=== PATIENT | female | born 1990 | race Caucasian/White ===

== ENCOUNTER → 2018-08-31 | Outpatient (REF) | payer OTHER ==
[2018-08-31 14:26] LABS: HEMATOCRIT 38.4 % (36.0-47.0); HEMOGLOBIN 12.9 g/dl (12.0-15.5); MEAN CORPUSCULAR HEMOGLOBIN 29.6 pg (27.0-33.0); MEAN CORPUSCULAR HGB CONC 33.6 g/dl (32.0-36.5); MEAN CORPUSCULAR VOLUME 88.1 fl (80.0-96.0); PLATELET COUNT, AUTOMATED 207 10^3/uL (150-450); RED BLOOD COUNT 4.36 10^6/uL (4.00-5.40); WHITE BLOOD COUNT 7.8 10^3/uL (4.0-10.0)
[2018-09-01 12:37] LABS: HIV 1&2 SCREEN CENTAUR NEGATIVE (NEGATIVE); RUBELLA IgG QUALITATIVE IMMUNE (IMMUNE)
== END ==
LOC: M LAB REF 13:43
PROVIDERS: ATTEND Obstetrics & Gynecology
DX: Z34.01 Encounter for supervision of normal first pregnancy, first trimester (principal)

== ENCOUNTER → 2018-09-14 | Outpatient (CLI) | payer OTHER ==
[2018-09-14 18:37] LABS: BASO % 0.4 % (0.0-1.0); EOS # 0.2 10^3/uL (0.0-0.50); EOS % 3.4 % (0.0-3.0); HEMOGLOBIN 12.8 g/dl (12.0-15.5); LYMPH # 1.4 10^3/uL (1.5-6.5); LYMPH % 19.5 % (24.0-44.0); MEAN CORPUSCULAR HEMOGLOBIN 29.8 pg (27.0-33.0); MEAN CORPUSCULAR HGB CONC 33.7 g/dl (32.0-36.5); MEAN CORPUSCULAR VOLUME 88.6 fl (80.0-96.0); MONO # 0.4 10^3/uL (0.0-0.8); MONO % 5.3 % (0.0-5.0); NEUTROPHILS # 4.9 10^3/uL (1.8-7.7); NEUTROPHILS % 71.1 % (36.0-66.0); PLATELET COUNT, AUTOMATED 189 10^3/uL (150-450); RED BLOOD COUNT 4.29 10^6/uL (4.00-5.40)
[2018-09-14 20:38] LABS: CHLAMYDIA DNA AMPLIFICATION NEGATIVE (NEGATIVE); GC DNA AMPLIFICATION NEGATIVE (NEGATIVE)
[2018-09-15 10:10] LABS: HEPATITIS C VIRUS ABY INDEX < 0.0 INDEX (<0.8); HIV 1&2 SCREEN CENTAUR NEGATIVE (NEGATIVE); RUBELLA IgG QUALITATIVE IMMUNE (IMMUNE)
== END ==
LOC: M SMT 14:49
PROVIDERS: ATTEND Advanced Practice Midwife
DX: Z36.89 Encounter for other specified antenatal screening (principal)

== ENCOUNTER → 2018-11-24 | Outpatient (REF) | payer OTHER ==
[2018-11-24 21:06] LABS: CHLAMYDIA DNA AMPLIFICATION NEGATIVE (NEGATIVE); GC DNA AMPLIFICATION NEGATIVE (NEGATIVE)
== END ==
LOC: M LAB REF 17:13
PROVIDERS: ATTEND Obstetrics & Gynecology
DX: Z11.3 Encounter for screening for infections with a predominantly sexual mode of transmission (principal)

== ENCOUNTER → 2019-01-23 | Outpatient (CLI) | payer OTHER ==
[2019-01-23 18:45] LABS: HEMATOCRIT 34.3 % (36.0-47.0); HEMOGLOBIN 11.1 g/dl (12.0-15.5); MEAN CORPUSCULAR HEMOGLOBIN 30.1 pg (27.0-33.0); MEAN CORPUSCULAR HGB CONC 32.4 g/dl (32.0-36.5); PLATELET COUNT, AUTOMATED 185 10^3/uL (150-450); RED BLOOD COUNT 3.69 10^6/uL (4.00-5.40); WHITE BLOOD COUNT 9.9 10^3/uL (4.0-10.0)
== END ==
LOC: M SMT 14:15
PROVIDERS: ATTEND Advanced Practice Midwife
DX: O47.02 False labor before 37 completed weeks of gestation, second trimester (principal); Z3A.00 Weeks of gestation of pregnancy not specified

== ENCOUNTER → 2019-02-09 | Outpatient (CLI) | payer MEDICAID ==
--- NOTE | 2019-02-09 12:16 | REP ---
OB ULTRASOUND, BIOPHYSICAL PROFILE: Real-time sonographic evaluation of gravid uterus performed utilizing transabdominal and endovaginal technique. There is a single living intrauterine gestation. The estimated gestational age is 32 weeks 2 days based on LMP, EDC 04/04/2019. Today's measurements indicate appropriate growth. BPD 82 mm = 32 weeks 6 days, 58th percentile HC 297 mm = 32 weeks 6 days, 58th percentile AC 286 mm = 32 weeks 4 days, 54th percentile Femur length 62 mm = 32 weeks 0 days, 45th percentile HC/AC ratio 1.04, within normal range. Estimated weight 1976 grams, 46th percentile. heart rate 133 beats per minute. Amniotic fluid within normal limits, BOBBI 10.6 within normal range of 8.5 to 24.3. Biophysical profile score 8/8. S/D ratio 2.97, below normal range of 3.21 to 4.49. RI 0.66, within normal range of 0.63 to 0.79. SEEN/GROSSLY UNREMARKABLE Lateral ventricles Yes Posterior fossa No Upper lip Yes Four-chamber heart Yes LVOT Yes RVOT Yes Stomach Yes Cord insertion No Three vessel cord No Kidneys Yes Bladder Yes Spine Yes position: Vertex. Placenta: Posterior and grade 2 with no previa or abruption. Cervix is closed and measures 3.6 cm in length. Electronically Signed by Bin Cartwright MD 02/13/2019 05:29 P
== END ==
LOC: M RAD 10:37
PROVIDERS: ATTEND Advanced Practice Midwife
DX: O26.853 Spotting complicating pregnancy, third trimester (principal); Z3A.32 32 weeks gestation of pregnancy

== ENCOUNTER → 2019-02-09 | Outpatient (REF) | payer MEDICAID | LOC: M LAB REF 13:32 | PROVIDERS: ATTEND Advanced Practice Midwife | DX: Z34.82 Encounter for supervision of other normal pregnancy, second trimester (principal) ==

== ENCOUNTER → 2019-02-15 | Outpatient (CLI) | payer MEDICAID, OTHER | LOC: M LAB 06:56 | PROVIDERS: ATTEND Advanced Practice Midwife | DX: Z34.82 Encounter for supervision of other normal pregnancy, second trimester (principal); Z36.89 Encounter for other specified antenatal screening ==

== ENCOUNTER 2019-03-11 20:56 | Outpatient (CLI) | payer MEDICAID ==
[~2019-03-11] VITALS: Ht 165.1 cm; Wt 85.0 kg
[2019-03-11 21:15] VITALS: BP 114/62
[2019-03-11] MEDS ORDERED: PRENTAB9 PO (21:32)
[2019-03-11] MEDS ORDERED: EXCETAB44 PO (21:32)
== END 2019-03-11 22:16 | disposition home or self-care (01) ==
LOC: M LDO 20:56
PROVIDERS: ATTEND Obstetrics & Gynecology
DX: O47.03 False labor before 37 completed weeks of gestation, third trimester (principal); Z3A.36 36 weeks gestation of pregnancy

== ENCOUNTER 2019-03-14 04:51 | Inpatient (IN) | payer MEDICAID ==
[2019-03-14] VITALS (7 sets, daily range): BP systolic 86–131; BP diastolic 52–72
[~2019-03-14] VITALS: Ht 165.1 cm; Wt 84.4 kg
[~2019-03-14 04:51] MED LIST: EXCETAB44 PO; PRENTAB9 PO
[2019-03-14] MEDS ORDERED: LR 1,000 ML IV SCH (05:42)
[2019-03-14] MEDS ORDERED: LACTATED RINGER'S 1000 ML IV STA (05:42)
[2019-03-14] MEDS ORDERED: OXYTOCIN 30 UNITS IN 0.9% NaCl 500ML IV BAG (J2590) As Ordered ONE (06:02)
[2019-03-14 06:14] LABS: HEMATOCRIT 34.1 % (36.0-47.0); MEAN CORPUSCULAR HEMOGLOBIN 27.9 pg (27.0-33.0); MEAN CORPUSCULAR HGB CONC 32.3 g/dl (32.0-36.5); MEAN CORPUSCULAR VOLUME 86.5 fl (80.0-96.0); PLATELET COUNT, AUTOMATED 163 10^3/uL (150-450); RED BLOOD COUNT 3.94 10^6/uL (4.00-5.40); WHITE BLOOD COUNT 12.5 10^3/uL (4.0-10.0)
[2019-03-14] MEDS ORDERED: OXYTOCIN DRIP 30 UNITS in IV 1 EA IV SCH (07:08)
[2019-03-14] MEDS ORDERED: RHOGAM 300 MCG (1500 IU) INJ (J2790) IM SCH (07:15)
[2019-03-14] MEDS ORDERED: ACETAMINOPHEN 500 MG TAB PO PRN (07:15)
[2019-03-14] MEDS ORDERED: METHYLERGONOVINE MALEATE 0.2 MG TAB PO PRN (07:15)
[2019-03-14] MEDS ORDERED: MEASLES,MUMPS,RUBELLA VACCINE INJ (MMR-II) (90707) SC SCH (07:15)
[2019-03-14] MEDS ORDERED: ANUSOL HC CREAM 30GM TOP PRN (07:15)
[2019-03-14] MEDS ORDERED: DIBUCAINE 1% OINTMENT 30GM TOP PRN (07:15)
[2019-03-14] MEDS ORDERED: ONDANSETRON 4MG/2ML VIAL (J2405) IV PRN (07:15)
[2019-03-14] MEDS ORDERED: MOM 30ML SUSPENSION UDC PO PRN (07:15)
[2019-03-14] MEDS ORDERED: ACETAMINOPHEN TAB 650MG DOSE (2X325MG) PO PRN (07:15)
--- NOTE | 2019-03-14 07:24 | HPE ---
DATE OF ADMISSION: 03/14/2019 REASON FOR ADMISSION: Labor. HISTORY OF PRESENT ILLNESS: Mrs. Sagastume is a 29-year-old, 4, para 2, who presents at 37 weeks 2 days estimated gestational age by last menstrual period, confirmed by mid trimester ultrasound with complaints of contractions. She reports contractions throughout the night that have increased in intensity and frequency. She denies any vaginal bleeding or leakage of fluid. She reports active movements. Her course has been unremarkable. She initiated care in the first trimester and has been appropriate throughout. PAST MEDICAL HISTORY: Asthma. PAST SURGICAL HISTORY: section. that she has a past medical history asthma. OBSTETRICAL HISTORY: She has had one that was for arrest of dilation and bradycardia. She had a vaginal after section, proven to 7 pounds 11 ounces. MEDICATIONS: vitamins. ALLERGIES: She has no known drug allergies. SOCIAL HISTORY: Denies any alcohol, tobacco or drug use during . PHYSICAL EXAMINATION: Vital signs are stable. She is afebrile. She has a category one rate tracing. General Appearance: Well appearing, in no acute distress. Abdomen is gravid, nontender. Cervical Exam: She was 6 cm dilated, completely effaced, 0 station, and was grossly ruptured. LABS: Her blood type is A+. Antibody screen is negative. Rubella is immune. RPR is nonreactive. Hepatitis surface antigen negative. HIV is negative. Hepatitis C is nonreactive. Chlamydia and gonorrhea screens negative. She had an elevated 1-hour Glucola with a negative 3-hour glucose tolerance test. Her GBS status is unknown. ASSESSMENT: 1. This patient is a 29-year-old, 4, para 2, at 37 weeks and 4 days estimated gestational age with spontaneous rupture of membranes. 2. History of prior section. PLAN: 1. Admit to labor and delivery. CBC, RPR, type and screen. Antibiotics for GBS positive status. 2. The patient has been counseled throughout her regarding mode of delivery. She has expressed desire for trial of labor after section. She has been counseled on the risks of her management options. 3. Anticipate spontaneous vaginal delivery.
--- NOTE | 2019-03-14 07:25 | DN ---
DATE OF PROCEDURE: 03/14/2019 TIME OF : 620 GENDER: Male : 9 and 9 WEIGHT: 3182 grams ANESTHESIA: None. LACERATIONS: First degree midline laceration. COUNTS: Five laparotomy sponges accounted for prior to after delivery two sharps removed from delivery field. DELIVERY NOTE: On March 14, 2019 at 0621, Mrs. Sagastume a 29-year-old 4, para 3 had a vaginal after section of live born male , 9 and 9, weight was 3182 grams head was delivered OA followed by delivery shoulders and corpus. Cord was clamped times two and was cut by the father of baby under my direction. Placenta was then drained delivered grossly intact. A premixed bag of 500 mL of normal saline with 30 units of Pitocin was bolused along with uterine massage. The uterus was firm and inspection was first-degree midline laceration which was repaired with 3-0 Vicryl Rapide on reinspection cervix, vagina and perineum was grossly intact hemostatic. Mom and baby recovering in stable condition. The couple has decided to name their son
[2019-03-14] MEDS: DOCUSATE SODIUM 100 MG CAP PO SCH ×2 (08:13→21:27)
[2019-03-14] MEDS: PRENATAL VITAMINS CHEWABLE TABLET PO SCH (08:13)
[2019-03-14] MEDS ORDERED: LIDOCAINE 1% MDV 20ML VIAL INFIL ONE (08:15)
[2019-03-14] MEDS: IBUPROFEN 800 MG TAB PO PRN ×2 (09:16→16:20)
[2019-03-14] MEDS: IBUPROFEN 600 MG TAB PO PRN (19:46)
[2019-03-15 06:24] VITALS: BP 91/51
[2019-03-15] MEDS: PRENATAL VITAMINS CHEWABLE TABLET PO SCH (07:11)
[2019-03-15] MEDS: DOCUSATE SODIUM 100 MG CAP PO SCH (07:11)
[2019-03-15] MEDS: IBUPROFEN 600 MG TAB PO PRN (08:02)
== END 2019-03-15 16:23 | disposition home or self-care (01) | DRG 560 ==
LOC: M LDO 04:51 → M LDI 06:21 → M OBS 08:57
PROVIDERS: ADMIT Obstetrics & Gynecology; ATTEND Obstetrics & Gynecology
PROC: 10E0XZZ Delivery of Products of Conception, External Approach (ICD-10-PCS; principal; 2019-03-14)
PROC: 0HQ9XZZ Repair Perineum Skin, External Approach (ICD-10-PCS; 2019-03-14)
DX: O34.211 Maternal care for low transverse scar from previous cesarean delivery (principal); O70.0 First degree perineal laceration during delivery; Z37.0 Single live birth; Z3A.37 37 weeks gestation of pregnancy

== ENCOUNTER → 2019-07-31 | Outpatient (REF) | payer MEDICAID, OTHER | LOC: M SFHCWAGY 16:55 | PROVIDERS: ATTEND Specialist | DX: Z01.419 Encounter for gynecological examination (general) (routine) without abnormal findings (principal) ==